=== PATIENT | female | born 1990 | race Hispanic/Latino ===

== ENCOUNTER 2018-02-05 04:43 | Inpatient (IN) | payer MEDICAID ==
[2018-02-05] MEDS ORDERED: LACTATED RINGERS 1,000 ML ONE (04:49)
[2018-02-05] MEDS ORDERED: BRETHINE SUB-Q PRN (04:57)
[2018-02-05] MEDS ORDERED: NARCAN 0.4 MG/1 ML IV PRN (04:57)
[2018-02-05] MEDS ORDERED: STADOL IV PRN (04:57)
[2018-02-05] MEDS ORDERED: XYLOCAINE 2% INFILTRATI ONE (04:57)
[2018-02-05] MEDS ORDERED: SUBLIMAZE IV PRN (04:57)
[2018-02-05] MEDS ORDERED: BRETHINE IVP PRN (04:57)
[2018-02-05] MEDS ORDERED: ZOFRAN IV PRN (04:57)
[2018-02-05] MEDS ORDERED: MINERAL OIL PO PRN (04:57)
[2018-02-05] MEDS ORDERED: ePHEDrine SULFATE IV PRN ×2 (04:57→07:26)
[2018-02-05] MEDS ORDERED: PITOCin/NS 20 UNIT/1000ML DRIP 20 UNITS/1,000 ML BAG IV SCH (05:00)
[2018-02-05] MEDS ORDERED: PITOCin/NS 30 UNIT/500ML 30 UNITS/500 ML BAG IV SCH ×2 (05:00)
--- NOTE | 2018-02-05 05:06 | History and Physical Report ---
History of Present Illness Date of examination: 02/05/18 Date of admission: 02/05/18 04:43 Chief complaint: SROM History of present illness: Pt is a 27yo WF EDC 02/07/18; EGA 39 5/7 weeks presents to L&D complaining of SROM clear fluid @ followed by irregular contractions. She received care at [facility] since 10 weeks, and followed by [facility] due to previous C Section and child with hydrocephalus. She desires a , and records are available. GBS is negative. Past History Past Medical History: other (scoliosis) Past Surgical History: section [employer] History: chlamydia Family/Genetic History: hypertension Social history: no significant social history, single - Obstetrical History Expected Date of Delivery: 02/07/18 Actual Gestation: 39 Week(s) 5 Day(s) : 2 Medications and Allergies Allergies Allergy/AdvReac Type Severity Reaction Status Date / Time No Known Allergies Allergy Verified 04/19/15 08:39 Home Medications Medication Instructions Recorded Confirmed Last Taken Type Ibuprofen [Motrin 800 MG tab] 800 mg PO Q6H PRN #30 tablet 04/20/15 Unknown Rx oxyCODONE /ACETAMINOPHEN [Percocet 1 tab PO Q4HR #30 tablet 04/20/15 Unknown Rx 5/325 mg] Review of Systems All systems: negative - Physical Exam Breasts: Positive: deferred Cardiovascular: Regular rate Lungs: Positive: Clear to auscultation Abdomen: Positive: normal appearance Genitourinary (Female): Positive: normal external genitalia Uterus: Positive: enlarged - Obstetrical FHR: category 1 Uterine Contraction Monitor Mode: External Cervical Dilatation: 4.5 Cervical Effacement Percentage: 80 station: -1 Uterine Contraction Pattern: Irregular Uterine Contraction Intensity: Mild Results All other labs normal. Assessment and Plan - Patient Problems (1) 39 weeks gestation of Onset Date: 02/05/18 Current Visit: Yes Status: Acute Plan to address problem: A: IUP @ 39 5/7 weeks in labor Previous C Section - desires P: Admit to L&D for TOLAC (2) Previous delivery affecting Onset Date: 02/05/18 Current Visit: Yes Status: Acute
[2018-02-05] MEDS: LACTATED RINGERS 1,000 ML IV SCH ×3 (05:55→08:45)
[2018-02-05 05:56] LABS: Hematocrit 29.7 % (30.3-42.9); Hemoglobin 9.9 gm/dl (10.1-14.3); Mean Corpuscular HGB Conc 33 % (30-34); Mean Corpuscular Hemoglobin 26 pg (28-32); Mean Corpuscular Volume 79 fl (79-97); Platelet Count 215 K/mm3 (140-440); Red Blood Count 3.77 M/mm3 (3.65-5.03); Red Cell Distribution Width 13.5 % (13.2-15.2)
--- NOTE | 2018-02-05 07:25 | Anesthesia Consultation ---
Anesthesia Consult and Med Hx Date of service: 02/05/18 - Airway Anesthetic Teeth Evaluation: Good ROM Head & Neck: Adequate Mental/Hyoid Distance: Adequate Mallampati Class: Class II Intubation Access Assessment: Probably Good - Pre-Operative Health Status ASA Pre-Surgery Classification: ASA2 Proposed Anesthetic Plan: Epidural, Spinal - Pulmonary Hx Asthma: No COPD: No Hx Pneumonia: No - Cardiovascular System Hx Hypertension: No - Central Nervous System Hx Seizures: No Hx Psychiatric Problems: No - Endocrine Hx Renal Disease: No Hx End Stage Renal Disease: No Hx Hypothyroidism: No Hx Hyperthyroidism: No - Hematic Hx Anemia: No Hx Sickle Cell Disease: No - Other Systems Hx Alcohol Use: No
[2018-02-05] MEDS ORDERED: NARCAN 2 MG/2 ML IV PRN (07:26)
--- NOTE | 2018-02-05 07:58 | Progress Note ---
Assessment and Plan A: 27-year-old at 39 weeks with -Cat 1 tracing P: -Continue present care -Anticipate normal vaginal delivery - Patient Problems (1) 39 weeks gestation of Onset Date: 02/05/18 Current Visit: Yes Status: Acute (2) Previous delivery affecting Onset Date: 02/05/18 Current Visit: Yes Status: Acute Subjective - Subjective Date of service: 02/05/18 Interval history: Patient seen, now 6 cm per RN. Discussed again with patient and her partner , we also reviewed risk of rupture. Patient reports: new complaints, movement normal, contractions, no loss of fluid, no vaginal bleeding Objective - Vital Signs Vital Signs: Vital Signs - 12hr 02/05/18 02/05/18 02/05/18 05:08 05:36 05:39 Temperature 98.9 F Pulse Rate 83 100 H 86 Respiratory 18 Rate Blood Pressure 113/67 Blood Pressure 112/62 [Right] O2 Sat by Pulse 100 98 Oximetry 02/05/18 02/05/18 02/05/18 05:41 05:47 05:52 Temperature Pulse Rate 83 111 H 96 H Respiratory Rate Blood Pressure 112/62 Blood Pressure [Right] O2 Sat by Pulse 100 100 99 Oximetry 02/05/18 02/05/18 02/05/18 05:57 06:02 06:04 Temperature Pulse Rate 83 84 92 H Respiratory Rate Blood Pressure Blood Pressure [Right] O2 Sat by Pulse 100 100 90 Oximetry 02/05/18 02/05/18 02/05/18 06:07 06:10 06:12 Temperature Pulse Rate 99 H 79 97 H Respiratory Rate Blood Pressure Blood Pressure [Right] O2 Sat by Pulse 97 94 97 Oximetry 02/05/18 02/05/18 02/05/18 06:16 06:17 06:21 Temperature Pulse Rate 80 84 98 H Respiratory Rate Blood Pressure Blood Pressure [Right] O2 Sat by Pulse 94 95 94 Oximetry 02/05/18 02/05/18 02/05/18 06:22 06:26 06:27 Temperature Pulse Rate 87 82 81 Respiratory Rate Blood Pressure Blood Pressure [Right] O2 Sat by Pulse 96 94 94 Oximetry 02/05/18 02/05/18 02/05/18 06:32 06:37 06:40 Temperature Pulse Rate 84 80 80 Respiratory Rate Blood Pressure Blood Pressure [Right] O2 Sat by Pulse 94 97 94 Oximetry 02/05/18 02/05/18 02/05/18 06:42 06:46 06:47 Temperature Pulse Rate 80 78 81 Respiratory Rate Blood Pressure Blood Pressure [Right] O2 Sat by Pulse 95 94 94 Oximetry 02/05/18 02/05/18 02/05/18 06:52 06:53 06:57 Temperature Pulse Rate 83 85 80 Respiratory Rate Blood Pressure Blood Pressure [Right] O2 Sat by Pulse 95 94 95 Oximetry 02/05/18 02/05/18 02/05/18 06:59 07:02 07:07 Temperature Pulse Rate 78 84 87 Respiratory Rate Blood Pressure Blood Pressure [Right] O2 Sat by Pulse 94 95 97 Oximetry 02/05/18 02/05/18 02/05/18 07:12 07:17 07:22 Temperature Pulse Rate 82 77 78 Respiratory Rate Blood Pressure Blood Pressure [Right] O2 Sat by Pulse 95 97 97 Oximetry 02/05/18 02/05/18 02/05/18 07:27 07:32 07:37 Temperature Pulse Rate 93 H 77 83 Respiratory Rate Blood Pressure Blood Pressure [Right] O2 Sat by Pulse 97 97 97 Oximetry 02/05/18 02/05/18 02/05/18 07:42 07:47 07:52 Temperature Pulse Rate 95 H 102 H 101 H Respiratory Rate Blood Pressure Blood Pressure [Right] O2 Sat by Pulse 98 99 99 Oximetry 02/05/18 02/05/18 07:57 07:58 Temperature Pulse Rate 96 H 99 H Respiratory Rate Blood Pressure 118/63 Blood Pressure [Right] O2 Sat by Pulse 99 Oximetry - Exam FHR: category 1 Cervical Dilatation: 6 (per RN) - Labs Labs: Abnormal Labs 02/05/18 05:00 Hgb 9.9 L Hct 29.7 L MCH 26 L Laboratory Results - last 24 hr 02/05/18 05:00 WBC 8.5 RBC 3.77 Hgb 9.9 L Hct 29.7 L MCV 79 MCH 26 L MCHC 33 RDW 13.5 Plt Count 215
[2018-02-05] MEDS ORDERED: fentaNYL-BUPIV 2 MCG/ML-0.125% 200 MCG/100 ML BAG EPIDURAL SCH (08:00)
--- NOTE | 2018-02-05 08:25 | Event Note ---
Date: 02/05/18 S: Feels good now that epidural is in O: VE /1, CAT I tracing, contractions every 4 - 5min A: Active labor P: Expect
[2018-02-05] MEDS ORDERED: TYLENOL PO PRN (10:00)
[2018-02-05] MEDS ORDERED: SODIUM CHLORIDE FLUSH SYRINGE 10 ML IV NR (10:00)
[2018-02-05] MEDS ORDERED: BENADRYL PO PRN (10:00)
[2018-02-05] MEDS ORDERED: LANSINOH TP PRN (10:00)
[2018-02-05] MEDS ORDERED: DULCOLAX PR PRN (10:00)
--- NOTE | 2018-02-05 10:06 | Procedure Note ---
OB Delivery Note - Delivery Date of Delivery: 02/05/18 Surgeon: LEWIS BENJAMIN Estimated blood loss: 200cc - Vaginal Delivery presentation: vertex Delivery position: OA Intrapartum events: none Delivery induction: none Delivery augmentation: pitocin Delivery monitor: external FHT, external uterine Route of delivery: Delivery placenta: spontaneous Episiotomy: none Delivery laceration: none Anesthesia: epidural Delivery comments: of a viable female 7# 1.3 oz at 0943 on February 05, over intact perineum. PLacenta delivered 3VCI. FF @ U. 9/9. Mother and baby doing well. - A at 1 minute: 9 at 5 minutes: 9 (7# 1.3 oz)
[2018-02-05] MEDS ORDERED: METHERGINE IM ONE (11:01)
--- NOTE | 2018-02-05 11:14 | Event Note ---
Date: 02/05/18 Called to see pt said to have PPH, she has been passing clots. Patient seen and appaesr stable with no VB noted now. Uterus if firm and well contracted. She is s/p Pit and methergen. Plan is to continue observation for now, keep NPO x ~ 1 hr
[2018-02-05] MEDS ORDERED: METHERGINE IM SCH (12:00)
[2018-02-05] MEDS: NORCO 5/325 PO PRN ×2 (13:28→20:09)
[2018-02-05] MEDS: MOTRIN PO SCH ×2 (13:29→20:09)
[2018-02-05 22:54] LABS: Hematocrit 26.6 % (30.3-42.9); Hemoglobin 8.5 gm/dl (10.1-14.3)
[2018-02-06] MEDS: MOTRIN PO SCH ×5 (02:06→21:48)
[2018-02-06] MEDS: NORCO 5/325 PO PRN ×3 (02:06→21:44)
--- NOTE | 2018-02-06 13:14 | Progress Note ---
Assessment and Plan A: PPD #1 - stable P: Discharge in am Subjective - Subjective Date of service: 02/06/18 Principal diagnosis: Patient reports: appetite normal [place]: doing well Objective - Vital Signs Latest vital signs: Vital Signs Temp Pulse Resp BP BP Pulse Ox 02/06/18 09:12 98.1 F 74 20 95/53 02/06/18 00:25 97.8 F 78 20 90/48 95 02/05/18 20:30 97.8 F 79 20 97/58 96 02/05/18 16:21 98.3 F 81 20 108/59 99 Intake and Output 02/05/18 02/06/18 02/06/18 22:59 06:59 14:59 Intake Total 600 360 120 Output Total 1350 Balance -750 360 120 Intake: Oral 600 360 120 Output: Urine 1350 Void 1350 Other: Total, Intake Amount 240 120 120 Total, Output Amount 400 # Voids Void 1 1 - Exam Breasts: Present: deferred Cardiovascular: Present: Regular rate, Other Abdomen: Present: soft Vulva: both: normal Uterus: Present: fundal height below umbilicus Extremities: Present: normal Deep Tendon Reflex Grade: Normal +2 - Labs Labs: Abnormal lab results 02/05/18 Range/Units 22:35 Hgb 8.5 L (10.1-14.3) gm/dl Hct 26.6 L (30.3-42.9) %
--- NOTE | 2018-02-06 13:15 | Discharge Summary ---
Providers - Providers Date of Admission: 02/05/18 04:43 Date of discharge: 02/07/18 Attending physician: DOMENICA CRISOSTOMO MD Primary care physician: DOMENICA CRISOSTOMO MD Hospitalization Reason for admission: active labor Delivery: Episiotomy: none Laceration: none complications: none Discharge diagnosis: IUP at term delivered, baby: female Condition at discharge: Good Disposition: DC-01 TO HOME OR SELFCARE Plan - Provider Discharge Summary Activity: routine, no sex for 6 weeks, no strenuous exercise Diet: routine Instructions: routine Additional instructions: [] Smoking cessation referral if applicable(refer to patient education folder for contact #) [] Refer to [facility]'s [facility] Booklet Call your doctor immediately for: * Fever > 100.5 * Heavy vaginal bleeding ( >1 pad per hour) * Severe persistent headache * Shortness of breath * Reddened, hot, painful area to leg or breast * Drainage or odor from incision. * Keep incision clean and dry at all times and follow doctor's instructions regarding bathing/showering - Follow up plan Follow up: DOMENICA CRISOSTOMO MD [Primary Care Provider] - 6 Weeks
[2018-02-07] MEDS: MOTRIN PO SCH (06:23)
[2018-02-07] MEDS: NORCO 5/325 PO PRN (06:24)
[2018-02-07] MEDS ORDERED: BOOSTRIX IM ONE (09:41)
[2018-02-07 11:48] VITALS: BP 101/56
== END 2018-02-07 13:35 | disposition home or self-care (01) | DRG 775 ==
LOC: APU 04:43 → LD 05:08 → OB 12:17
PROVIDERS: ADMIT Obstetrics & Gynecology; ATTEND Obstetrics & Gynecology
PROC: 10E0XZZ Delivery of Products of Conception, External Approach (ICD-10-PCS; principal; 2018-02-05)
PROC: 3E0R3BZ Introduction of Anesthetic Agent into Spinal Canal, Percutaneous Approach (ICD-10-PCS; 2018-02-05)
PROC: 00HU33Z Insertion of Infusion Device into Spinal Canal, Percutaneous Approach (ICD-10-PCS; 2018-02-05)
DX: O34.211 Maternal care for low transverse scar from previous cesarean delivery (principal); O33.6XX0 Maternal care for disproportion due to hydrocephalic fetus, not applicable or unspecified; Z82.49 Family history of ischemic heart disease and other diseases of the circulatory system; Z37.0 Single live birth; Z3A.39 39 weeks gestation of pregnancy
CPT/HCPCS: 36415; 85014; 85018; 85027; 86592; 86850; 86900; 86901; 90471; 90715; 99211; A6250; G0463; J0595; J2210; J2405; J2590; J7120